=== PATIENT | female | born 1990 | race Hispanic/Latino ===

== ENCOUNTER 2021-10-08 03:33 | Emergency (ER) | payer OTHER, SELFPAY ==
[2021-10-08] VITALS (11 sets, daily range): BP systolic 105–117; BP diastolic 76–85; PULSE 97–108; RESP 12–23; TEMP 36.2; O2SAT 95–97
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
== END 2021-10-08 05:49 | disposition home or self-care (01) ==
PROVIDERS: Emergency Provider Emergency Medicine
DX: S00.03XA Contusion of scalp, initial encounter (principal); V49.40XA Driver injured in collision with unspecified motor vehicles in traffic accident, initial encounter
CPT/HCPCS: 70450; 71046; 99284

== ENCOUNTER 2023-06-18 15:03 | Outpatient (CLI) | payer OTHER, SELFPAY ==
[2023-06-18 16:21] LABS: Thyroid Stimulating Hormone 0.425 uIU/mL (0.465-4.680)
[2023-06-18 16:32] LABS: HIV 1/2 Ab P24 Ag Result Negative (Negative)
[2023-06-18 17:28] LABS: Hemoglobin A1C 5.6 % (<5.7)
[2023-06-18 20:04] LABS: Hepatitis B Surface Antigen Negative (Negative)
[2023-06-18 20:09] LABS: HAV RESULT Negative (Negative); Hepatitis B Core IgM Result Negative (Negative)
[2023-06-18 20:21] LABS: Hepatitis C Virus Antibody Negative (Negative)
[2023-06-19 14:37] LABS: Rapid Plasma Reagin Non-Reactive (NonReactive)
[2023-06-21 19:10] LABS: Anti Mullerian Hormone,Female 4.47 ng/mL (0.36-10.07)
[2023-06-23 13:02] LABS: Testosterone Total 32 ng/dL (2-45)
[2023-06-24 06:21] LABS: FSH 3.5 mIU/mL (***); Progesterone 17.7 ng/mL (***)
[2023-06-24 23:18] LABS: Estradiol, Ultrasensitive 196 pg/mL
== END 2023-06-18 15:04 | disposition home or self-care (01) ==
LOC: ANHLAB 15:04
PROVIDERS: Visit Provider Student in an Organized Health Care Education/Training Program
DX: N91.2 Amenorrhea, unspecified (principal); R30.0 Dysuria; Z30.09 Encounter for other general counseling and advice on contraception
CPT/HCPCS: 36415; 80074; 82670; 83001; 83036; 84144; 84403; 84443; 86592; 86695; 86696; 86703; 87086; G0432

== ENCOUNTER 2023-07-23 15:27 | Outpatient (CLI) | payer OTHER, SELFPAY ==
[2023-07-23 16:44] LABS: Thyroid Stimulating Hormone 0.457 uIU/mL (0.465-4.680)
== END 2023-07-23 15:28 | disposition home or self-care (01) ==
LOC: ANHLAB 15:28
PROVIDERS: Visit Provider Student in an Organized Health Care Education/Training Program
DX: E03.9 Hypothyroidism, unspecified (principal)
CPT/HCPCS: 36415; 84439; 84443